=== PATIENT | male | born 1965 | race Caucasian/White ===

== ENCOUNTER 2019-01-15 11:57 | Emergency (ER) | payer SELFPAY ==
--- NOTE | 2019-01-15 14:23 | ED ---
Abdominal Pain/Male - HPI Summary HPI Summary: The patient is a 53 y/o M presenting to [facility] with reducible right inguinal hernia that has been protruding more frequently over the last two weeks. He reports that usually he is able to fix the hernia by lying down, but every time he does any physical exertion, the hernia is visible again. Currently, the hernia is reduced, but he is concerned for it not being able to reduce it. His symptoms are rated 5/10 in severity. He denies any testicular pain. PMHx: ankle surgery. Nonsmoker, occasional EtOH, marijuana use. Medications reviewed. Allergies noted. - History of Current Complaint Chief Complaint: EDAbdPain Stated Complaint: POSS HERNIA PER PT Time Seen by Provider: 01/15/19 14:12 Hx Obtained From: Patient Onset/Duration: Sudden Onset, Lasting Weeks - two, Still Present Timing: Intermittent Severity Initially: Moderate Severity Currently: Mild Pain Intensity: 5 Pain Scale Used: 0-10 Numeric Location: Groin - right inguinal hernia Radiates: No Character: Sharp Aggravating Factor(s): Other: - exertion Alleviating Factor(s): Other: - rest Associated Signs And Symptoms: Positive: Other - Negative: testicular pain - Allergies/Home Medications Allergies/Adverse Reactions: Allergies Allergy/AdvReac Type Severity Reaction Status Date / Time No Known Allergies Allergy Verified 01/15/19 12:07 PMH/Surg Hx/FS Hx/Imm Hx Endocrine/Hematology History: Denies: Hx Anticoagulant Therapy, Hx Blood Disorders, Hx Blood Transfusions, Hx Bone Marrow Disease, Hx Diabetes, Hx Systemic Lupus Erythematosus, Hx Sickle Cell Disease, Hx Thyroid Disease, Hx Anemia, Hx Unexplained Bleeding, Other Endocrine/Hematological Disorders Cardiovascular History: Denies: Hx Hypercholesterolemia, Hx Hypertension Respiratory History: Reports: Hx Pneumonia - 20+ yrs ago Denies: Hx Asthma, Hx Chronic Bronchitis, Hx Chronic Obstructive Pulmonary Disease (COPD), Hx Cystic Fibrosis, Hx Lung Cancer, Hx Pleural Effusion, Hx Pulmonary Edema, Hx Pulmonary Embolism, Hx Seasonal Allergies, Hx Sleep Apnea, Other Respiratory Problems/Disorders GI History: Denies: Hx Cirrhosis, Hx Crohn's Disease, Hx Diverticulosis, Hx Gall Bladder Disease, Hx Gastroesophageal Reflux Disease, Hx Gastrointestinal Bleed, Hx Hiatal Hernia, Hx Irritable Bowel, Hx Jaundice, Hx Obstructive Bowel, Hx Ileostomy, Hx Pyloric Stenosis, Hx Ulcer, Other GI Disorders History: Reports: Other Problems/Disorders - inguinal hernia Denies: Hx Acute Renal Failure, Hx Benign Prostatic Hyperplasia, Hx Chronic Renal Failure, Hx Dialysis, Hx Kidney Infection, Hx Kidney Stones Musculoskeletal History: Denies: Hx Arthritis, Hx Back Problems, Hx Bursitis, Hx Congenital Bone Abnormalities, Hx Fibromyalgia, Hx Gout, Hx Orthopedic Injury, Hx Osteoporosis, Hx Scoliosis, Hx Tendonitis, Other Musculoskeletal History Sensory History: Denies: Hx Cataracts, Hx Contacts or Glasses, Hx Eye Injury, Hx Eye Prosthesis, Hx Glaucoma, Hx Macular Degeneration, Hx Vision Problem, Hx Deafness , Hx Hearing Aid, Hx Hearing Problem, Other Sensory Impairments Opthamlomology History: Denies: Hx Cataracts, Hx Contacts or Glasses, Hx Eye Injury, Hx Eye Prosthesis, Hx Glaucoma, Hx Macular Degeneration, Hx Vision Problem, Other Sensory Impairments Neurological History: Denies: Hx Dementia, Hx Developmental Delay, Hx Headaches, Hx Migraine, Hx Nerve Disease, Hx Seizures, Hx Spinal Cord Injury, Hx Transient Ischemic Attacks (TIA), Other Neuro Impairments/Disorders Psychiatric History: Denies: Hx Anxiety, Hx Attention Deficit Hyperactivity Disorder, Hx Eating Disorder, Hx Depression, Hx Panic Disorder, Hx Post Traumatic Stress Disorder, Hx Inpatient Treatment, Hx Community Mental Health Tx, Hx Schizophrenia, Hx Bipolar Disorder, Hx Suicide Attempt, Hx of Violent Episodes Against Others, Hx Substance Abuse, Other Psychiatric Issues/Disorders - Surgical History Surgical History: Yes Surgery Procedure, Year, and Place: b/l ankle fx with pins/screws Hx Anesthesia Reactions: No Infectious Disease History: No Infectious Disease History: Denies: Hx Hepatitis, Hx Tuberculosis, Traveled Outside the [place] in Last 30 Days - Family History Known Family History: Negative: Hypertension - Social History Alcohol Use: Occasionally Hx Substance Use: Yes Substance Use Type: Reports: Excessive Caffeine, Marijuana Smoking Status (MU): Former Smoker Review of Systems Positive: Abdominal Pain - at sight of hernia Positive: other - Negative: testicular pain. All Other Systems Reviewed And Are Negative: Yes Physical Exam - Summary Physical Exam Summary: VITAL SIGNS: Reviewed. GENERAL: Patient is a well-developed and nourished male who is lying comfortable in the stretcher. Patient is not in any acute respiratory distress. HEAD AND FACE: Normocephalic and atraumatic. EYES: PERRLA, EOMI x 2, No injected conjunctiva. EARS: Hearing grossly intact. Ear canals and tympanic membranes are WNL. MOUTH: Oropharynx within normal limits. NECK: Supple, trachea is midline, no adenopathy, no JVD. CHEST: Symmetric, no tenderness at palpation. LUNGS: Clear to auscultation bilaterally. No wheezing or crackles. CVS: RRR, S1 and S2 present, no murmurs or gallops appreciated. ABDOMEN: Soft, non-tender. Inguinal hernia reduced. No signs of distention. Positive bowel sounds. No rebound, no guarding, and no masses palpated. No abdominal bruit or pulsations. EXTREMITIES: FROM in all major joints, no edema, no cyanosis or clubbing. NEURO: Alert and oriented x 3. No acute neurological deficits. Speech is normal. SKIN: Dry and warm. : Circumcised penis, both testicles are descended. No masses are appreciated. Positive cremasteric reflex. Triage Information Reviewed: Yes Vital Signs On Initial Exam: Initial Vitals Temp Pulse Resp BP Pulse Ox 98.8 F 113 16 111/89 97 01/15/19 12:04 01/15/19 12:04 01/15/19 12:04 01/15/19 12:04 01/15/19 12:04 Vital Signs Reviewed: Yes Procedures - Sedation Patient Received Moderate/Deep Sedation with Procedure: No Diagnostics - Vital Signs Vital Signs Temp Pulse Resp BP Pulse Ox 01/15/19 12:04 98.8 F 113 16 111/89 97 - Laboratory Lab Statement: Any lab studies that have been ordered have been reviewed, and results considered in the medical decision making process. Abdominal Pain Male Course/Dx - Course Assessment/Plan: Patient is a 53 y/o M with a chief complaint of right inguinal hernia that has been protruding more frequently over the last two weeks. During the physical exam the inguinal hernia is reduced. At this point, the patient has no complaints. The patient is hemodynamically stable. The patient will be discharged home with follow-up with surgery. He was given instructions to return to the emergency department if he has an inguinal hernia that is not reducible. I discussed all the findings and test results with the patient. Patient was instructed to return to the emergency room immediately if any of the symptoms return worsens. Plan of care was discussed with the patient and understands and agrees. All questions were answered at patient satisfaction. There were no further complaints or concerns. Lung exam before discharge: CTA B/ L. Good air exchange. No wheezing or crackles heard. CVS: S1 and S2 present. No murmurs appreciated. Patient is alert and oriented x 3. Patient is hemodynamically stable. Patient will be discharged home with follow up PCP in the next 2-3 days. - Diagnoses Provider Diagnoses: Reducible inguinal hernia Discharge ED - Sign-Out/Discharge Documenting (check all that apply): Patient Departure - Patient will be discharged home. - Discharge Plan Condition: Good Disposition: HOME Patient Education Materials: Inguinal Hernia (ED) Referrals: [facility] [Outside] Dany Anguiano MD [Medical Doctor] - 1 Day Additional Instructions: Follow up with Dr. Anguiano from surgery tomorrow. Please refrain from heavy lifting, exerting yourself, or any activities that may use your abdominal muscles. Try to wear something tighter on the area of the hernia to prevent it from popping out. Return to the emergency department for any new or worsening symptoms. - Billing Disposition and Condition Condition: GOOD Disposition: Home - Attestation Statements Document Initiated by Lenoree: Yes Documenting Scribe: Diane Torres Provider For Whom Rosie is Documenting (Include Credential): Dr. Ronnie Martini MD Scribe Attestation: I, Diane Torres scribed for Dr. Ronnie Martini MD on 01/15/19 at 1845. Scribe Documentation Reviewed: Yes Provider Attestation: The documentation as recorded by the Diane chávez accurately reflects the service I personally performed and the decisions made by me, Dr. Ronnie Martini MD Status of Scribe Document: Viewed
[2019-01-15 14:37] VITALS: BP 108/84
== END 2019-01-15 14:35 | disposition home or self-care (01) ==
LOC: ED 11:57
DX: K40.90 Unilateral inguinal hernia, without obstruction or gangrene, not specified as recurrent (principal); Z87.891 Personal history of nicotine dependence
CPT/HCPCS: 99282

== ENCOUNTER 2019-03-08 05:46 | Day surgery (SDC) | payer SELFPAY ==
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
[~2019-03-08 05:46] MED LIST: Buffered Lidocaine 1% SYRIN* 1 ML/SYRINGE INTRADERM ONE
[2019-03-08] MEDS ORDERED: Famotidine IV* 10 MG/ML 2 ML (20 mg) IV ONE (06:00)
[2019-03-08] MEDS ORDERED: Scopolamine 1.5 mg* PATCH TRANSDERM ONE (06:00)
[2019-03-08] MEDS ORDERED: Lactated Ringers 1000 ML Bag* 1,000 ML IV SCH (06:00)
[2019-03-08] MEDS ORDERED: Famotidine IV* 10 MG/ML 2 ML (20 mg) ONE (06:08)
[2019-03-08] MEDS ORDERED: ceFAZolin 2 GM in NS PREMIX(*) 2 GM/100 ML BAG IVPB ONE (06:08)
[2019-03-08] MEDS ORDERED: Scopolamine 1.5 mg* PATCH ONE (06:08)
[2019-03-08] MEDS ORDERED: Bupivacaine 0.25% EPI 200,000* 30 ML SDV ONE (07:05)
[2019-03-08] MEDS ORDERED: Dexamethasone IV* 4 MG/ML 1 ML (4 MG) ONE (07:08)
[2019-03-08] MEDS ORDERED: Ketorolac INJ* 30 MG/ML 1 ML VIAL ONE (07:08)
[2019-03-08] MEDS ORDERED: Lidocaine 2% MPF* 2 ML VIAL ONE (07:08)
[2019-03-08] MEDS ORDERED: fentaNYL* 50 MCG/ML 5 ML VIAL (250 MCG VIAL) ONE (07:08)
[2019-03-08] MEDS ORDERED: Propofol* 10 MG/ML 20 ML BTL ONE (07:08)
[2019-03-08] MEDS ORDERED: Ondansetron INJ* 2 MG/ML VIAL ONE (07:08)
[2019-03-08] MEDS ORDERED: Rocuronium* 10 MG/ML VIAL ONE (07:08)
[2019-03-08] MEDS ORDERED: KETAMINE HCL* 50 MG/ML 10 ML VIAL ONE (07:09)
[2019-03-08] MEDS ORDERED: Midazolam* 1 MG/ML 5 ML VIAL (5 MG) ONE (07:09)
[2019-03-08] MEDS ORDERED: Ondansetron INJ* 2 MG/ML VIAL IV PRN (07:24)
[2019-03-08] MEDS ORDERED: Levalbuterol 0.63MG/3ML NEB* UNIT OF USE INH PRN (07:24)
[2019-03-08] MEDS ORDERED: Naloxone* 0.4 MG/ML 1 ML VIAL IV PRN (07:24)
[2019-03-08] MEDS ORDERED: Albuterol HFA INHALER* 8 gm MDI INH PRN (07:34)
[2019-03-08] MEDS ORDERED: Levalbuterol HFA INHALER* 1 PUFF MDI ONE (07:46)
[2019-03-08] MEDS ORDERED: EPHEDrine (Pressors)* 50 MG/ML VIAL ONE (07:49)
[2019-03-08] MEDS ORDERED: Sugammadex * 200 MG/2 ML VIAL IV PUSH ONE (09:20)
[2019-03-08] MEDS ORDERED: fentaNYL* 50 MCG/ML 2 ML VIAL (100 MCG VIAL) ONE ×2 (10:21→11:05)
[2019-03-08] MEDS: fentaNYL* 50 MCG/ML 2 ML VIAL (100 MCG VIAL) IV PRN ×3 (10:23→11:07)
[2019-03-08] MEDS ORDERED: oxyCODONE/Acetamin 5/325 MG* TAB ONE (10:53)
[2019-03-08 13:28] VITALS: BP 99/57
--- NOTE | 2019-03-08 20:04 | OP ---
DATE OF OPERATION: 03/08/19 - [facility] DATE OF : 63 SURGEON: Dany Anguiano MD DIALYSIS TECHNICIAN: RAIMUNDO Lagunas ANESTHESIOLOGIST: Dr. Yonis Schmidt. ANESTHESIA: General endotracheal PRE-OP DIAGNOSIS: Right inguinal hernia. POST-OP DIAGNOSIS: Right inguinal hernia. OPERATIVE PROCEDURE: Robotic repair of right inguinal hernia with mesh. ESTIMATED BLOOD LOSS: Minimal. IV FLUIDS: Crystalloid. SPECIMEN: None. DRAINS: None. COMPLICATIONS: None. COUNT: Instrument, needle, and sponge counts were correct. DESCRIPTION OF PROCEDURE: The patient was brought to the operating room and placed on the table supine. Sequential compression devices were placed on both lower extremities. General anesthesia was administered. Howard catheter was placed. He was positioned and padded appropriately. He received appropriate intravenous antibiotics. A time out was performed after he was prepped and draped. Pneumoperitoneum was established using a Veress needle in the left upper quadrant. Carbon dioxide was insufflated to a pressure of 15 mmHg. 8-mm ports were placed in the upper abdomen, one in midline epigastrium, one in the right upper quadrant and one in the left upper quadrant. The optical trocar was used. ProGrip mesh size 10 x 15 cm was placed in the peritoneal cavity along with a 3-0 V-Loc 90 suture. Robot was docked in the standard fashion. Transabdominal preperitoneal technique was used. Peritoneal flap was raised approximately 8 cm above the inguinal ligament on the right. He did have an indirect inguinal hernia on the right with no evidence of inguinal hernia on the left. The dissection proceeded down to the pubic symphysis with identification and preservation of the inferior epigastric vessels. Dre's ligament was identified. Dissection proceeded medial to laterally with identification, preservation of the spermatic cord structures. Dissection proceeded laterally to the anterior superior iliac spine. After completing adequate dissection of peritoneal flap, the mesh was positioned covering from the midline laterally. Direct and indirect and femoral spaces were all covered. Peritoneum was reapproximated with a 3-0 V-Loc 90 suture. A couple of rents in the peritoneum were closed additionally with 3-0 Vicryl. After assuring the peritoneal closure, all the sutures and instruments were removed. Skin incisions were closed with 4-0 Monocryl in subcuticular fashion. DermaFlex was applied. The patient tolerated the procedure and extubated uneventfully and transferred to Recovery stable. [id number]/[facility] #: [id number] MTDD
[2019-03-11] MEDS ORDERED: Scopolamine PATCH Remove* 1 NOTE MISC PATCH OFF ONE (06:00)
== END 2019-03-08 13:30 | disposition home or self-care (01) ==
LOC: OR 05:46
PROVIDERS: ATTEND Surgery
DX: K40.90 Unilateral inguinal hernia, without obstruction or gangrene, not specified as recurrent (principal); F17.210 Nicotine dependence, cigarettes, uncomplicated
CPT/HCPCS: 49650; S2900; A9270-GY; C1781; J0690; J1100; J1885; J2250; J2405; J2704; J3010